=== PATIENT | male | born 1975 | race Caucasian/White ===

== ENCOUNTER 2018-04-17 19:49 | Emergency (ER) | payer BC ==
[~2018-04-17] VITALS: Ht 177.8 cm; Wt 71.6 kg
[2018-04-17 20:20] LABS: HEMATOCRIT 43.4 % (38.0-50.0); HEMOGLOBIN 15.3 G/DL (12.5-16.6); MCH 33.3 PG (29.0-34.0); MCHC 35.3 G/DL (30.0-36.0); MCV 94.3 FL (86-99); PLATELET COUNT 205 K/uL (156-360); RBC DIS.WIDTH-CV 17.6 % (11.8-14.6); RBC DIS.WIDTH-SD 61.2 % (39-53); WHITE BLOOD COUNT 5.4 K/uL (4.1-10.2)
[2018-04-17 20:33] LABS: CHLORIDE 110 mEq/L (99-109); POTASSIUM 3.3 mEq/L (3.7-5.4); SODIUM 144 mEq/L (136-147)
[2018-04-17 20:35] LABS: GLUCOSE 96 mg/dL (70-99)
[2018-04-17 20:38] LABS: CREATININE 0.9 mg/dL (0.6-1.3); GFR ESTIMATE (CALCULATED) > 59 mL/min/ (58.99-99999)
[2018-04-17 20:39] LABS: UREA NITROGEN (BUN) 4 mg/dL (9-23)
[2018-04-17 22:07] LABS: ALBUMIN 4.3 g/dL (3.2-4.8)
[2018-04-17 22:09] LABS: TOTAL PROTEIN 7.6 g/dL (6.4-8.3)
[2018-04-17 22:12] LABS: ALKALINE PHOSPHATASE 124 IU/L (3-129); SERUM ETHYL ALCOHOL 435 mg/dL
[2018-04-17 22:14] LABS: AST (GOT) 163 IU/L (2-34)
[2018-04-17 22:15] LABS: ALT (GPT) 96 IU/L (3-49); DIRECT BILIRUBIN 0.5 mg/dL (0.0-0.3)
[2018-04-17 22:16] LABS: LIPASE 45 U/L (1.0-51.0)
[2018-04-18 00:28] LABS: APPEARANCE CLEAR ((CLEAR)); BILIRUBIN NEGATIVE; BLOOD SMALL; COLOR YELLOW ((YELLOW)); GLUCOSE (STRIP) NEGATIVE; KETONES NEGATIVE; LEUKOCYTES NEGATIVE; NITRITE NEGATIVE; PROTEIN (STRIP) NEGATIVE; SPECIFIC GRAVITY 1.043 (1.000-1.030); UROBILINOGEN 0.2 MG/DL (0.2-1.0)
[2018-04-18 00:37] LABS: AMPHETAMINE NEGATIVE (500 ng/mL); BARBITURATES NEGATIVE (200 ng/mL); BENZODIAZEPINES NEGATIVE (150 ng/mL); BUPRENORPHINE NEGATIVE (10 ng/mL); COCAINE NEGATIVE (150 ng/mL); METHADONE NEGATIVE (200 ng/mL); METHAMPHETAMINE NEGATIVE (500 ng/mL); OPIATES (MORPHINE) NEGATIVE (100 ng/mL); OXYCODONE NEGATIVE (100 ng/mL); PHENCYCLIDINE NEGATIVE (25 ng/mL); PROPOXYPHENE NEGATIVE (300 ng/mL); THC CANNABINOIDS NEGATIVE (50 ng/mL); TRICYCLIC ANTIDEPRESSANTS NEGATIVE (300 ng/mL)
[2018-04-18 00:43] LABS: BACTERIA NONE SEEN /HPF; EPITHELIAL CELLS RARE /HPF; MUCUS TRACE /LPF; RED BLOOD CELLS 0-5 /HPF (0-5); UCUL ADDED? NO; WHITE BLOOD CELLS 0-5 /HPF (0-5)
[2018-04-18 01:32] VITALS: BP 120/72
== END 2018-04-18 01:33 | disposition home or self-care (01) ==
LOC: EME 19:49
PROVIDERS: Emergency Medicine
DX: R10.9 Unspecified abdominal pain (principal); F10.10 Alcohol abuse, uncomplicated; Y90.8 Blood alcohol level of 240 mg/100 ml or more; K51.90 Ulcerative colitis, unspecified, without complications; K76.0 Fatty (change of) liver, not elsewhere classified
CPT/HCPCS: 74177; 80048; 80076; 81003; 83690; 85027; 86850; 86900; 86901; 99281; 99285; G0480; J2060; J7030